=== PATIENT | male | born 1995 ===

== ENCOUNTER 2021-03-04 22:54 | Emergency (ER) | payer OTHER ==
[2021-03-04] MEDS ORDERED: Sodium Chloride 0.9% 10 ML Syringe FLUSH PRN (22:56)
[2021-03-04] MEDS ORDERED: Naloxone 0.4 MG/ML SDV IVPUSH ONE (22:58)
[2021-03-04] MEDS ORDERED: Lactated Ringers 1,000 ML IV SCH (23:00)
[2021-03-04] MEDS ORDERED: Ondansetron 4 MG/2 ML SDV IVPUSH ONE (23:18)
[2021-03-04] MEDS ORDERED: Ondansetron 4 MG/2 ML SDV ONE (23:19)
[2021-03-04] MEDS ORDERED: OLANZapine 10 MG Vial IM ONE (23:32)
[2021-03-04] MEDS ORDERED: OLANZapine 10 MG Vial ONE (23:34)
== END 2021-03-05 03:24 ==
LOC: JP.ED 22:54
DX: T43.622A Poisoning by amphetamines, intentional self-harm, initial encounter (principal)
CPT/HCPCS: 36415; 80053; 80143; 80179; 80305-QW; 80307; 85025; 93005; 93010; 96372; 96374; 96375; 99284; 99284-25; J2310; J2405; J3490; J7120